=== PATIENT | female | born 1945 | race American Indian/Alaskan Native ===

== ENCOUNTER 2017-04-22 17:10 | Emergency (ER) | payer MEDICARE ==
[2017-04-22 17:19] VITALS: PULSE 67; RESP 16; TEMP 99.4; O2SAT 98
[2017-04-22] MEDS ORDERED: Morphine 4 MG/ML VIAL IVP STA (17:43)
--- NOTE | 2017-04-22 17:56 | ED PDOC ---
HPI: Back Time Seen by Provider: 04/22/17 17:25 Chief Complaint (Nursing): Back Pain Chief Complaint (Provider): right flank pain History Per: Patient History/Exam Limitations: no limitations Onset/Duration Of Symptoms: Days (3 days ago) Current Symptoms Are (Timing): Still Present Additional Complaint(s): 71 yo female with a history of chronic kidney disease, kidney stones, renal cyst , and hypertension, presents to the ED complaining of right-sided flank pain, gradual onset of 3 days ago. Patient reports of worsened pain since onset, with mild radiation to the front associated with nausea and non-bilious, non-bloody vomiting. She denies hematuria, dysuria, fever, diarrhea, constipation, and melena, but also notes that she has been experiencing some urinary frequency and chills. Of note, she has also been seen by Dr. Herrera, nephrology, in the past. pmd: Dr. Lopez Past Medical History Reviewed: Historical Data, Nursing Documentation, Vital Signs Vital Signs: Last Vital Signs Temp 99.4 F 04/22/17 17:16 Pulse 67 04/22/17 17:16 Resp 16 04/22/17 17:16 BP 201/77 H 04/22/17 17:16 Pulse Ox 98 04/22/17 17:16 - Medical History PMH: HTN, Chronic Kidney Disease Other PMH: Kidney Stones and Renal Cyst - Surgical History Surgical History: (x3) Other surgeries: hysterectomy, cryosurgery - Family History Family History: States: Hypertension - Social History Current smoker - smoking cessation education provided: No Ex-Smoker (has not smoked in the last 12 months): No Alcohol: None Drugs: Denies - Home Medications Home Medications: Ambulatory Orders Medication Instructions Recorded Ondansetron ODT [Zofran ODT] 1 odt PO Q6 PRN #20 odt 04/22/17 traMADol [Ultram] 50 mg PO TID PRN #15 tab 04/22/17 - Allergies Allergies/Adverse Reactions: Allergies Allergy/AdvReac Type Severity Reaction Status Date / Time No Known Allergies Allergy Verified 04/22/17 17:16 Review of Systems ROS Statement: Except As Marked, All Systems Reviewed And Found Negative Constitutional: Positive for: Chills. Negative for: Fever Gastrointestinal: Positive for: Nausea, Vomiting. Negative for: Diarrhea, Constipation, Melena, Hematemesis Genitourinary Female: Positive for: Frequency. Negative for: Dysuria, Hematuria Physical Exam - Reviewed Nursing Documentation Reviewed: Yes Vital Signs Reviewed: Yes - Physical Exam Appears: Positive for: Non-toxic, In Acute Distress (moderate and painful) Head Exam: Positive for: ATRAUMATIC, NORMOCEPHALIC Skin: Positive for: Warm, Dry Eye Exam: Positive for: EOMI, PERRL ENT: Positive for: Pharynx Is (clear), Nasal Congestion (mild) Neck: Positive for: Painless ROM, Supple Cardiovascular/Chest: Positive for: Regular Rate, Rhythm, Chest Non Tender. Negative for: Murmur Respiratory: Positive for: Normal Breath Sounds. Negative for: Wheezing Gastrointestinal/Abdominal: Positive for: Soft, Tenderness (mild suprapubic tenderness to palpation). Negative for: Mass, Distended, Guarding, Rebound Back: Positive for: R CVA Tenderness. Negative for: Other (midline tenderness) Extremity: Positive for: Normal ROM. Negative for: Deformity Lymphatic: Negative for: Adenopathy Neurologic/Psych: Positive for: Alert. Negative for: Motor/Sensory Deficits - Laboratory Results Result Diagrams: 04/22/17 18:03 04/22/17 18:03 - ECG O2 Sat by Pulse Oximetry: 98 (RA) Pulse Ox Interpretation: Normal Medical Decision Making Medical Decision Making: Time: --17:41 Impression: --Right flank pain with a history of chronic kidney disease Differential(included but not limited to): --Renal Colic vs. Renal Mass vs. Pylonephritis vs. Musculoskeletal Pain Plan: --CT ABD & Pelvis W/O pelvis --Labs --Lipase --Magnesium --Phosphorous --ED Urine --PTT --Prothrombin Time --Morphine 4mg IVP --Zofran 4mg IVP --Urine Culture --IV Insertion --Urinalysis Reassess --18:36 PROCEDURE: CT Abdomen and Pelvis without intravenous contrast FINDINGS: LOWER THORAX: Unremarkable. LIVER: Unremarkable. No gross lesion or ductal dilatation. GALLBLADDER AND BILE DUCTS: Cholelithiasis. No mural thickening or pericholecystic fluid. PANCREAS: Unremarkable. No gross lesion or ductal dilatation. SPLEEN: Unremarkable. ADRENALS: Unremarkable. No mass. KIDNEYS AND URETERS: Multiple bilateral low-density renal masses, largest upper pole right kidney, 3.5 cm. This measures 9 Hounsfield units, consistent with cysts. No calculus or hydronephrosis. VASCULATURE: Unremarkable. No aortic aneurysm. BOWEL: Unremarkable. No obstruction. No gross mural thickening. APPENDIX: Unremarkable. Normal appendix. PERITONEUM: Unremarkable. No free fluid. No free air. LYMPH NODES: Unremarkable. No enlarged lymph nodes. BLADDER: Poorly distended. Grossly normal. REPRODUCTIVE: Status post hysterectomy BONES: No acute fracture. OTHER FINDINGS: None. IMPRESSION: No acute abnormality. Multiple bilateral renal cysts. Cholelithiasis without evidence of cholecystitis --20:47 EXAM: US Abdomen Limited, Right Upper Quadrant CLINICAL HISTORY: 71 years old, female; Pain; Abdominal pain; Epigastric; Additional info: Right sided pain R/O cholecystitis TECHNIQUE: Real-time ultrasound of the right upper quadrant with image documentation. COMPARISON: No relevant prior studies available. FINDINGS: Liver: Normal echogenicity. No mass. No intrahepatic bile duct dilatation. Gallbladder: Gallstones. No wall thickening. No pericholecystic fluid. No sonographic Robertson's sign. Common bile duct: No dilatation. No stones. Pancreas: Unremarkable as visualized. Right kidney: Normal echogenicity. Several anechoic lesions, largest measuring up to 4.0 cm. No hydronephrosis. IMPRESSION: 1. Cholelithiasis. 2. Probable right renal cysts DW pt findings and plan of care. Tramadol, Zofran, f/u Urology and PMD. Pt no longer vomiting and BP normalized without intervention. Scribe Attestation: Documented by Benjamín Flores acting as a scribe for Mela Pope MD. Provider Attestation: All medical record entries made by the Scribe were at my direction and personally dictated by me. I have reviewed the chart and agree that the record accurately reflects my personal performance of the history, physical exam, medical decision making, and the department course for this patient. I have also personally directed, reviewed, and agree with the discharge instructions and disposition. Disposition - Clinical Impression Clinical Impression: Multiple renal cysts, Nausea & vomiting - Disposition Referrals: [facility] [Outside] (CALL [facility] FOR ASSISTANCE WITH SCHEDULING APPOINTMENTS.) Thalia Jeffers MD [Medical Doctor] - (CALL TOMORROW TO SETUP APPOINTMENT WITHIN A WEEK) Disposition Time: 21:00 Condition: IMPROVED Prescriptions: Ondansetron ODT [Zofran ODT] 1 odt PO Q6 PRN #20 odt PRN Reason: Nausea/Vomiting traMADol [Ultram] 50 mg PO TID PRN #15 tab PRN Reason: SEVERE PAIN ONLY Instructions: Polycystic Kidney Disease, Nausea and Vomiting, Adult (DC), Gallstones (DC) Forms: [facility] (Indonesian)
[2017-04-22 18:00] VITALS: BP 165/98
[2017-04-22] MEDS ORDERED: Morphine 4 MG/ML VIAL ONE (18:03)
[2017-04-22 18:06] LABS: BASO # 0.1 K/uL (0.0-0.2); BASO % 0.6 % (0.0-2.0); EOS # 0.1 K/uL (0.0-0.7); EOS % 0.7 % (0.0-4.0); LYMPH % 19.1 % (20.0-40.0); MEAN CORPUSCULAR HEMOGLOBIN 29.6 pg (27.0-31.0); MEAN CORPUSCULAR HGB CONC 32.9 g/dL (33.0-37.0); MEAN PLATELET VOLUME 9.9 fl (7.2-11.7); MONO # 0.7 K/uL (0.0-0.8); MONO % 6.4 % (0.0-10.0); NEUT # 7.8 K/uL (1.8-7.0); NEUT % 73.2 % (50.0-75.0); RBC 3.73 Mil/uL (3.80-5.20); RED CELL DISTRIBUTION WIDTH 13.7 % (11.5-14.5); WHITE BLOOD COUNT 10.6 K/uL (4.8-10.8)
[2017-04-22 18:16] LABS: INR 1.1 (0.9-1.2); PROTHROMBIN TIME 34.2 Seconds (9.8-13.1)
[2017-04-22 18:17] LABS: PARTIAL THROMBOPLASTIN TIME 34.2 Seconds (25.6-37.1)
[2017-04-22 18:18] LABS: ALB/GLOB RATIO 0.9 (1.0-2.1); ALBUMIN 4.1 g/dL (3.5-5.0); CALCIUM 10.4 mg/dL (8.4-10.2); MAGNESIUM 2.3 MG/DL (1.6-2.3)
--- NOTE | 2017-04-22 18:37 | CT ---
PROCEDURE: CT Abdomen and Pelvis without intravenous contrast HISTORY: RIGHT flank pain h/o CKD cysts and stones COMPARISON: None. TECHNIQUE: Without contrast.. Contrast Dose: 0 Radiation dose: Total exam DLP = 1033.26 mGy-cm. This CT exam was performed using one or more of the following dose reduction techniques: Automated exposure control, adjustment of the mA and/or kV according to patient size, and/or use of iterative reconstruction technique. FINDINGS: LOWER THORAX: Unremarkable. LIVER: Unremarkable. No gross lesion or ductal dilatation. GALLBLADDER AND BILE DUCTS: Cholelithiasis. No mural thickening or pericholecystic fluid. PANCREAS: Unremarkable. No gross lesion or ductal dilatation. SPLEEN: Unremarkable. ADRENALS: Unremarkable. No mass. KIDNEYS AND URETERS: Multiple bilateral low-density renal masses, largest upper pole right kidney, 3.5 cm. This measures 9 Hounsfield units, consistent with cysts. No calculus or hydronephrosis. VASCULATURE: Unremarkable. No aortic aneurysm. BOWEL: Unremarkable. No obstruction. No gross mural thickening. APPENDIX: Unremarkable. Normal appendix. PERITONEUM: Unremarkable. No free fluid. No free air. LYMPH NODES: Unremarkable. No enlarged lymph nodes. BLADDER: Poorly distended. Grossly normal. REPRODUCTIVE: Status post hysterectomy BONES: No acute fracture. OTHER FINDINGS: None. IMPRESSION: No acute abnormality. Multiple bilateral renal cysts. Cholelithiasis without evidence of cholecystitis.
[2017-04-22 19:52] LABS: SQUAMOUS EPITHIAL 2 /hpf (0-5); URINE BACTERIA RARE (<OCC); URINE BILIRUBIN NEGATIVE (NEGATIVE); URINE BLOOD NEGATIVE (NEGATIVE); URINE CLARITY CLEAR (Clear); URINE COLOR YELLOW (YELLOW); URINE GLUCOSE (UA) NEG (Normal); URINE LEUKOCYTE ESTERASE SMALL Leu/uL (Negative); URINE NITRATE NEGATIVE (NEGATIVE); URINE PROTEIN 30 mg/dL (NEGATIVE); URINE UROBILINOGEN 0.2-1.0 mg/dL (0.2-1.0)
--- NOTE | 2017-04-22 20:47 | US ---
EXAM: US Abdomen Limited, Right Upper Quadrant CLINICAL HISTORY: 71 years old, female; Pain; Abdominal pain; Epigastric; Additional info: Right sided pain R/O cholecystitis TECHNIQUE: Real-time ultrasound of the right upper quadrant with image documentation. COMPARISON: No relevant prior studies available. FINDINGS: Liver: Normal echogenicity. No mass. No intrahepatic bile duct dilatation. Gallbladder: Gallstones. No wall thickening. No pericholecystic fluid. No sonographic Robertson's sign. Common bile duct: No dilatation. No stones. Pancreas: Unremarkable as visualized. Right kidney: Normal echogenicity. Several anechoic lesions, largest measuring up to 4.0 cm. No hydronephrosis. IMPRESSION: 1. Cholelithiasis. 2. Probable right renal cysts.
== END 2017-04-22 21:20 | disposition home or self-care (01) ==
LOC: H.ER 17:10
DX: N28.1 Cyst of kidney, acquired (principal); R10.13 Epigastric pain; I12.9 Hypertensive chronic kidney disease with stage 1 through stage 4 chronic kidney disease, or unspecified chronic kidney disease; Z90.710 Acquired absence of both cervix and uterus; K80.20 Calculus of gallbladder without cholecystitis without obstruction
CPT/HCPCS: 74176; 76705; 80053; 81003; 83690; 83735; 84100; 85025; 85610; 85730; 87086; 96374; 96375; 99282; J2270; J2405